=== PATIENT | female | born 1995 | race Caucasian/White ===

== ENCOUNTER 2017-11-11 11:21 | Emergency (ER) | payer MEDICAID ==
--- NOTE | 2017-11-11 12:29 | EDPHY ---
H & P Stated Complaint: I think East infection and heroin I am coming down from Time Seen by Provider: 11/11/17 12:27 HPI/ROS: HPI: This is a 22-year-old female who presents with Chief Complaint: Vaginal yeast infection Location: Vaginal Quality: Discharge Duration: 3-4 days Signs and Symptoms: no fever, no nausea, no vomiting, no hematemesis, no blood in stool, no abdominal bloating, no diarrhea, no back pain, no urinary symptoms , no vaginal bleeding, no indigestion, no chest pain, no shortness of breath Timing: Daily Severity: Moderate Context: Patient reports that she has a Merina IUD in place, presents from drug detox facility, with complaints of 3-4 day history of vaginal discharge with an odor and denies any vaginal pruritus. She notes that there is mild redness surrounding her vaginal opening. She believes that she may have a yeast infection. Reports that she has not had intercourse in 3 weeks and she is not concern for STDs. Denies any urinary symptoms. Did not use a condom during intercourse. Patient reports that her last use of heroin was on Monday which was approximately 4 days ago. She denies any nausea, vomiting, abdominal pain. She reports that she feels anxious. Modifying Factors: None Comment: ROS: see HPI Constitutional: No fever, no chills, no weight loss Eyes: No blurred vision Respiratory: No shortness of breath, no cough Cardiovascular: No chest pain, no palpitations Gastrointestinal: No nausea, no vomiting, no diarrhea, no hematemesis, no blood in stool Genitourinary: No dysuria, no blood in urine Extremities: No myalgias, no edema Neurologic: No weakness, no numbness Skin: No rashes, no petechiae Hematologic: No bruising, no bleeding MEDICAL/SURGICAL/SOCIAL HISTORY: Medical history: Generally healthy. Does not take any regular medications. Surgical history: Denies Social history: Family history noncontributory. CONSTITUTIONAL: Well-appearing young adult white female, awake and alert, no obvious distress HEENT: Atraumatic and normocephalic, PERRL, EOMI. Nares patent; no rhinorrhea; no nasal mucosal edema. Tympanic membranes clear. Oropharynx clear, no exudate and moist pink mucosa. Airway patent. No lymphadenopathy. No meningismus. Cardiovascular: Normal S1/S2, regular rate, regular rhythm, without murmur rub or gallop. PULMONARY/CHEST: Symmetrical and nontender. Clear to auscultation bilaterally. Good air movement. No accessory muscle usage. ABDOMEN: Soft, nondistended, nontender, no rebound, no guarding, no peritoneal signs, no masses or organomegaly. No CVAT. PELVIC: normal external genitalia, normal cervix, cervical os was closed, no cervical motion tenderness, no adnexal mass, thick, white, malodorous discharge , no bleeding. 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 EXTREMITIES: 2/2 pulses, strength 5/5, no deformities, no clubbing, no cyanosis or edema. NEUROLOGICAL: no focal neuro deficits. GCS 15. SKIN: Warm and dry, no erythema. no rash. Good capillary refill. Source: Patient Exam Limitations: No limitations - Personal History LMP (Females 10-55): IUD In Place - Medical/Surgical History Hx Asthma: No Hx Chronic Respiratory Disease: No Hx Diabetes: No Hx Cardiac Disease: No Hx Renal Disease: No Hx Cirrhosis: No Hx Alcoholism: No Hx HIV/AIDS: No Hx Splenectomy or Spleen Trauma: No Other PMH: heroin addiction - Social History Smoking Status: Current every day smoker Constitutional: Initial Vital Signs Temperature (C) 37.1 C 11/11/17 11:49 Heart Rate 103 H 11/11/17 11:49 Respiratory Rate 18 11/11/17 11:49 Blood Pressure 129/81 H 11/11/17 11:49 O2 Sat (%) 98 11/11/17 11:49 O2 Delivery Mode Room Air Allergies/Adverse Reactions: clarithromycin [From Biaxin] Allergy (Verified 11/11/17 11:48) Home Medications: Medication Instructions Recorded Fluconazole [Diflucan (*)] 150 mg PO ONCE #1 tab 11/11/17 Zoloft 100mg (*) 11/11/17 Medical Decision Making ED Course/Re-evaluation: Vital signs reviewed and stable upon arrival Patient has a Mirena IUD and test not ordered Urinalysis no ordered due to no urinary symptoms manager commission consult. Patient is on a court ordered detox program is not allowed to have any substances. Updated patient on the status. 1338: Called by lab that stated that positive ease, positive WBC, no clue cells , no Trichomonas, no Gardnerella Patient given p.o. Diflucan 150 mg and script for same if symptoms not resolved in 3 days. This patient was seen under the supervision of my secondary supervising physician. I evaluated care for this patient independently. Discussed this patient with Dr. Dobson who did not see the patient. Differential Diagnosis: Differential diagnosis includes but is not limited to bacterial vaginitis candidiasis vaginitis, chlamydia, gonorrhea, Trichomonas. - Data Points Laboratory Results: 11/11/17 11/11/17 12:56 12:56 Trichomonas (Wet Prep) NO TRICHOMONAS Nadia species DNA TNP C.trachomatis RNA (TMA) Pending Gardnerella DNA Probe TNP N.gonorrhoeae RNA (TMA) Pending Trichomonas DNA Probe TNP Medications Given: Discontinued Medications Lorazepam (Ativan) 1 mg PO EDNOW ONE Stop: 11/11/17 13:10 Last Admin: 11/11/17 13:28 Dose: Not Given Departure - Departure Disposition: Home, Routine, Self-Care Clinical Impression: Heroin use, Candidiasis, vagina Condition: Good Instructions: Narcotic Abuse (ED), Yeast Infection (ED) Additional Instructions: Pelvic rest x1 week. Please continue to refrain from using heroin. Take Tylenol 650 mg every 4 hours and/or Ibuprofen 600 mg every 8 hours with food as needed for pain. Referrals: ANITA BRITTON [Other] - 5-7 days, if not improved Prescriptions: Fluconazole [Diflucan (*)] 150 mg PO ONCE #1 tab
[2017-11-11] MEDS ORDERED: LORazepam 1 MG TAB PO ONE (13:09)
[2017-11-11] MEDS ORDERED: FLUCONAZOLE 150 MG TAB PO ONE (13:38)
[2017-11-11 13:57] VITALS: BP 123/67
[2017-11-13 13:09] LABS: GC AMPLIFICATION GENPROBE NEGATIVE (NEGATIVE)
== END 2017-11-11 13:58 | disposition home or self-care (01) ==
DX: B37.3 Candidiasis of vulva and vagina (principal); F11.90 Opioid use, unspecified, uncomplicated; F17.200 Nicotine dependence, unspecified, uncomplicated